=== PATIENT | male | born 1990 | race Caucasian/White ===

== ENCOUNTER 2023-04-16 14:43 | Emergency (ER) | payer SELFPAY ==
[2023-04-16 14:49] VITALS: BP 148/89; PULSE 80; RESP 20; TEMP 36.9; O2SAT 98; BMI 28.1
--- NOTE | 2023-04-16 15:04 | ED.DENTAL1 ---
HPI - Dental/Oral General Chief complaint: Dental/Oral Stated complaint: TOOTH PAIN Time Seen by Provider: 04/16/23 14:47 Source: patient Mode of arrival: walk-in Limitations: no limitations History of Present Illness HPI Narrative: Patient is a 32-year-old male who presents to the emergency department for the evaluation of dental pain and facial swelling. He states that he has had dental caries with partial avulsion of tooth #8, he has now noted in the last day that there is swelling over the right maxilla. He has had no fevers, chills, nausea, vomiting, drainage from the area. No medications taken prior to arrival. Related Data Previous Rx's Medication Instructions Recorded clindamycin HCl 150 mg capsule 300 mg (2 x 150 mg) PO Q6H 10 days 04/16/23 #80 caps naproxen sodium 550 mg tablet 550 mg PO BID PRN pain #10 tabs 04/16/23 Allergies Allergy/AdvReac Type Severity Reaction Status Date / Time Penicillins Allergy Severe Rash Verified 04/16/23 14:53 Review of Systems ROS Constitutional Denies: fever or chills Eyes Denies: change in vision Ears, nose, mouth, and throat Denies: throat pain or nasal congestion Cardiovascular Denies: chest pain Respiratory Denies: shortness of breath or cough Gastrointestinal Denies: nausea or vomiting Musculoskeletal Denies: back pain Integumentary/Breast Denies: rash Neurological Denies: headache Allergic/Immunologic Denies: hives Exam Narrative Exam Narrative: Gen.: Awake, alert, in no distress Head: Normocephalic, atraumatic ENT: Moist mucous membranes; Tooth #8 is partially avulsed with root exposure, diffuse swelling of the gumline and right maxilla. No erythema or abscess noted. No trismus or drooling. Airway widely open and patent with clear speech. Respiratory: No respiratory distress Extremities: Moves extremities equally Psych: Normal mood and affect Neuro: No focal neuro deficit Skin: Warm, dry, intact Constitutional Vital Signs, click to edit/add: Last Vital Signs Temp 98.5 F 04/16/23 14:49 Pulse 80 04/16/23 14:49 Resp 20 04/16/23 14:49 BP 148/89 H 04/16/23 14:49 Pulse Ox 98 04/16/23 14:49 O2 Del Method Room Air 04/16/23 14:49 Course Vital Signs Vital signs: Vital Signs Temperature 98.5 F 04/16/23 14:49 Pulse Rate 80 04/16/23 14:49 Respiratory Rate 20 04/16/23 14:49 Blood Pressure 148/89 H 04/16/23 14:49 Pulse Oximetry 98 04/16/23 14:49 Oxygen Delivery Method Room Air 04/16/23 14:49 Temperature 98.5 F 04/16/23 14:49 Pulse Rate 80 04/16/23 14:49 Respiratory Rate 20 04/16/23 14:49 Blood Pressure 148/89 H 04/16/23 14:49 Pulse Oximetry 98 04/16/23 14:49 Oxygen Delivery Method Room Air 04/16/23 14:49 MDM - Dental/Oral MDM Narrative Medical decision making narrative: Exam is consistent with dental infection causing right maxillary swelling. Patient placed on 10 days of clindamycin. He has a dentist appointment but states they will not extract his tooth until the infection is improved. He is encouraged to finish the whole course of his antibiotic and apply warm compresses. Return to the ER if symptoms change or worsen. Medical Records Attestation: I reviewed the patient's medical records. Discharge Plan Discharge Chief Complaint: Dental/Oral Clinical Impression: Dental caries, Dental infection Patient Disposition: Home, Self-Care Time of Disposition Decision: 15:02 Condition: Good Prescriptions / Home Meds: New clindamycin HCl 150 mg capsule 300 mg PO Q6H 10 Days Qty: 80 0RF naproxen sodium 550 mg tablet 550 mg PO BID PRN (Reason: pain) Qty: 10 0RF Instructions: Dental Abscess (ED) Additional Instructions: Follow up with dental as scheduled Stand Alone Forms: Portal Instructions Referrals: Physician,Non-Staff, MD [Primary Care Provider] - 1 week Discharge Date/Time: 04/16/23 15:14
[2023-04-16] MEDS: BENZOCAINE 30 ML, lidocaine HCL 15 ML MM (15:11)
== END 2023-04-16 15:14 | disposition home or self-care (01) ==
PROVIDERS: Emergency Provider Emergency Medicine
DX: K02.9 Dental caries, unspecified (principal); K04.7 Periapical abscess without sinus
CPT/HCPCS: 99283